=== PATIENT | female | born 1980 | race Hispanic/Latino ===

== ENCOUNTER 2024-11-08 16:53 | Emergency (ER) | payer OTHER ==
[~2024-11-08] VITALS: Ht 162.6 cm; Wt 88.4 kg
[2024-11-08] MEDS ORDERED: diphenhydrAMINE HCL 50 MG CAP PO ONE (20:15)
[2024-11-08] MEDS ORDERED: methylPREDNISolone 4 MG HOME.PACK PO ONE (20:15)
[2024-11-08 20:39] VITALS: BP 126/76
== END 2024-11-08 20:40 | disposition home or self-care (01) ==
LOC: ED 16:53
DX: L50.9 Urticaria, unspecified (principal)
CPT/HCPCS: 99282; Q0163